=== PATIENT | male | born 1950 | race Caucasian/White ===

== ENCOUNTER 2020-10-13 14:02 | Outpatient (RCR) | payer OTHER, SELFPAY ==
[2020-10-13] MEDS: COVID-19 VACC, MRNA(PFIZER)/PF 30 MCG/0.3 ML SYRINGE IM (15:02)
[2020-11-03] MEDS: COVID-19 VACC, MRNA(PFIZER)/PF 30 MCG/0.3 ML SYRINGE IM (14:49)
== END 2021-01-12 23:59 ==
LOC: IMMUN 14:02
PROVIDERS: PCP Internal Medicine; Visit Provider Family Medicine
DX: Z23 Encounter for immunization (principal)
CPT/HCPCS: 0001A; 0002A; 91300